=== PATIENT | male | born 1975 | race Caucasian/White ===

== ENCOUNTER 2017-03-16 16:28 | Observation (INO) | payer SELFPAY ==
--- NOTE | 2017-03-16 18:20 | RAD ---
Indication: Post coital bilateral testicular pain radiating into the abdomen. Comparison: None. Technique: Scrotal ultrasound. Report: 5.1 x 1.9 x 3.3 cm RIGHT testicle. 4.9 x 2.2 x 3.0 cm LEFT testicle. Both testicles are normal in echotexture and demonstrate normal range vascularity. Unremarkable 1.0 x 1.4 cm RIGHT epididymis head and 0.8 x 1.3 cm LEFT epididymis head. Negative for hydroceles or varicoceles. IMPRESSION: No evidence for testicular torsion, epididymoorchitis, or focal testicular lesion. Negative exam.
[2017-03-16] MEDS ORDERED: Morphine INJ* 4 MG/ML 1 ML SYRINGE IV ONE (21:22)
[2017-03-16] MEDS ORDERED: Ondansetron INJ* 2 MG/ML VIAL IV ONE (21:22)
[2017-03-16] MEDS ORDERED: NS 0.9% 1000 ML* 1,000 ML IV ONE (21:22)
--- NOTE | 2017-03-16 21:25 | ED ---
Abdominal Pain/Male - HPI Summary HPI Summary: Pt here w/ lower mid pelvic pain x 2 days. Worse today after intercourse. Radiates into testicles - denies deformity of testicles (ie high riding, etc). Worse w/ moving bowels which are normal in regards to form, no blood or mucous, etc. Denies urinary sx, penile d/c, testicular swelling, flank pain, fever, chills, N/V/D. 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 No h/o ab pathology or surgery. No protruding masses or pulsing masses to report. - History of Current Complaint Chief Complaint: EDAbdPain Stated Complaint: ABD/TESTICULAR PAIN Time Seen by Provider: 03/16/17 21:07 Hx Obtained From: Patient Pain Intensity: 8 - Allergies/Home Medications Allergies/Adverse Reactions: Allergies Allergy/AdvReac Type Severity Reaction Status Date / Time No Known Allergies Allergy Verified 03/16/17 21:41 PMH/Surg Hx/FS Hx/Imm Hx Previously Healthy: Yes Endocrine/Hematology History: Denies: Hx Anticoagulant Therapy, Hx Blood Disorders Cardiovascular History: Reports: Hx Hypertension - improved after changing careers Musculoskeletal History: Reports: Hx Back Problems - chronic back pain Infectious Disease History: No Infectious Disease History: Denies: Traveled Outside the [place] in Last 30 Days - Social History Occupation: Employed Full-time Lives: With Family Alcohol Use: Daily Hx Tobacco Use: Yes Smoking Status (MU): Current Every Day Smoker Review of Systems Negative: Fever, Chills Negative: Chest Pain Negative: Shortness Of Breath, Cough Positive: Abdominal Pain - see HPI Positive: see HPI. Negative: flank pain Musculoskeletal: Negative Skin: Negative Neurological: Negative Psychological: Normal - concerned All Other Systems Reviewed And Are Negative: Yes Physical Exam Triage Information Reviewed: Yes Vital Signs On Initial Exam: Initial Vitals Temp Pulse Resp BP Pulse Ox 97.2 F 73 17 140/85 99 03/16/17 16:39 03/16/17 16:39 03/16/17 16:39 03/16/17 16:39 03/16/17 16:39 Vital Signs Reviewed: Yes Appearance: Positive: Well-Appearing, Well-Nourished, Pain Distress - mild to moderate Skin: Positive: Warm, Dry Head/Face: Positive: Normal Head/Face Inspection Eyes: Positive: Normal, EOMI, Conjunctiva Clear - anicteric sclera ENT: Positive: Hearing grossly normal, Pharynx normal - mucosa moist Respiratory/Lung Sounds: Positive: Clear to Auscultation, Breath Sounds Present. Negative: Rales, Rhonchi, Wheezes Cardiovascular: Positive: Normal, RRR, Pulses are Symmetrical in both Upper and Lower Extremities, S1, S2 Abdomen Description: Positive: Distended - pt has pain w/ percussion; generalized TTP, Guarding. Negative: Hernia @ - no hernia palpated nor visualized w/ valsalva Bowel Sounds: Positive: Present Male Genital Exam: Positive: normal genitalia, inguinal tenderness - Lt > Rt Musculoskeletal: Positive: Normal, Strength/ROM Intact Neurological: Positive: Normal, Sensory/Motor Intact, Alert, Oriented to Person Place, Time, CN Intact II-III Psychiatric: Positive: Normal - calm but concerned Diagnostics - Vital Signs Vital Signs Temp Pulse Resp BP Pulse Ox 03/16/17 16:39 97.2 F 73 17 140/85 99 - Laboratory Result Diagrams: 03/16/17 21:50 03/16/17 21:50 Lab Statement: Any lab studies that have been ordered have been reviewed, and results considered in the medical decision making process. Re-Evaluation - Re-Evaluation First Eval Change: Improved - morphine 4mg w/ IVF took the edge off but pain returned after a while Abdominal Pain Fem Course/Dx - Course Course Of Treatment: Pt presents w/ lower pelvic/ab pain over the past 2 days. Worse w/ BM. WBC and CRP elevated - CT reveals mild to moderate diverticulitis. Discussion with pt re: d/c vs. admission. After much deliberation, he prefers admission. Tolerated ice water well although this did cause some mild pain. Morphine 8mg was ordered as 4mg did not help much. He does not have nausea throughout his stay. Admitted to hospital service under Dr. Newton. - Diagnoses Provider Diagnoses: Diverticulitis of sigmoid colon Discharge - Discharge Plan Condition: Stable Disposition: ADMITTED TO [facility] [place] [facility]
[2017-03-16 21:48] LABS: Urine Bilirubin Negative (Negative); Urine Glucose Negative (Negative); Urine Nitrite Negative (Negative)
[2017-03-16 22:08] LABS: Hematocrit 46 % (42-52); Hemoglobin 15.5 g/dl (14.0-18.0); Mean Corpuscular HGB Conc 33 g/dl (31-36); Mean Corpuscular Hemoglobin 31 pg (27-31); Mean Corpuscular Volume 94 fL (80-94); Mean Platelet Volume 11 um3 (7.4-10.4); Red Blood Count 4.92 10^6/ul (4.0-5.4); Red Cell Distribution Width 13 % (10.5-15); White Blood Count 17.1 10^3/ul (3.5-10.8)
[2017-03-16 22:13] LABS: Albumin 4.5 g/dL (3.2-5.2); BUN/Creatinine Ratio 12.7 (8-20); C Reactive Protein 12.78 mg/L (< 5.00); Calcium 9.4 mg/dL (8.6-10.3); EGFR African American 138.3 (>60); EGFR Non-African American 107.6 (>60); Globulin 3.2 g/dL (2-4); Potassium 3.9 mmol/L (3.5-5.0); Total Bilirubin 1.1 mg/dL (0.2-1.0); Total Protein 7.7 g/dL (6.4-8.9)
[2017-03-16] MEDS ORDERED: Iohexol 300* (CONTRAST) 10 ML SDV IV ONE (23:22)
[2017-03-17] MEDS ORDERED: Morphine INJ* 4 MG/ML 1 ML SYRINGE IV ONE (01:01)
[2017-03-17] MEDS ORDERED: Morphine INJ* 4 MG/ML 1 ML SYRINGE IV PRN (02:02)
[2017-03-17] MEDS ORDERED: Acetaminophen TAB* 325 MG PO PRN (02:02)
[2017-03-17] MEDS ORDERED: Ondansetron INJ* 2 MG/ML VIAL IV PRN (02:02)
[2017-03-17] MEDS ORDERED: NS 0.9% 1000 ML* 1,000 ML IV SCH (02:15)
[2017-03-17] MEDS: HYDROmorphone* 1 MG/ML 1 ML SYR IV SLOW PU PRN ×2 (02:43→08:21)
[2017-03-17] MEDS ORDERED: Ciprofloxacin 400MG IVPREMIX(* 400 MG/200 ML BAG IVPB SCH (03:00)
[2017-03-17] MEDS ORDERED: metroNIDAZOLE IV 500 MG/100ML* 500 MG/100 ML BAG IVPB SCH (04:00)
[2017-03-17] MEDS: Ciprofloxacin 400MG IVPREMIX(* 400 MG/200 ML BAG IVPB SCH ×2 (05:34→17:42)
--- NOTE | 2017-03-17 05:34 | HP ---
HISTORY AND PHYSICAL: DATE OF ADMISSION: 03/17/17 CHIEF COMPLAINT: Abdominal pain. HISTORY OF PRESENT ILLNESS: The patient is a 41-year-old gentleman who said he woke up this morning with pain in his lower abdomen radiating to his testicles. At one point, he said he felt like his testicles actually to the floor. He took ibuprofen and Pepto-Bismol without any success. At its worst, it was 9.5/10 in severity with pain. When asked if he does any heavy lifting, he says he does it every day. He denies any nausea or vomiting. He denies any change in his bowel movements. He denies any fevers or chills. He did receive some morphine in the ER, which did seem to help his pain to some degree. He also had a CAT scan, which showed diverticulitis without abscess or free air. PAST MEDICAL HISTORY: He has no significant past medical history. ALLERGIES: He has no known drug allergies. MEDICATIONS: None. FAMILY HISTORY: Mother is alive at 63, alive and well; father is alive at 73, has bladder cancer, coronary artery disease and stents. SOCIAL HISTORY: Smokes 1-1/2 packs a day. Denies need for nicotine replacement. He drinks 6 to 8 beers a day, used to drink a case of beer a day. Occasional marijuana. 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 His mom, Tabitha Raymond, is his healthcare proxy. He is in a monogamous relationship and he has 2 daughters. REVIEW OF SYSTEMS: A 14-point review of systems was completed with the patient. All pertinent positive and negatives are in the history of present illness, otherwise it is negative. PHYSICAL EXAMINATION GENERAL: Pleasant gentleman, lying in bed, in no acute distress. VITAL SIGNS: Temperature is 97.2 degrees, heart rate is 69 beats per minute, respiratory rate is 18 breaths per minute, pulse ox 97%, blood pressure 151/84. HEENT: Normocephalic, atraumatic. Pupils equal, round, reactive to light. Moist mucous membranes. NECK: Supple. No JVD, bruits, palpable thyroid, or lymphadenopathy. LUNGS: Chest is clear to auscultation and percussion bilaterally. CARDIOVASCULAR: S1 and S2 appreciated. Regular rate and rhythm. ABDOMEN: Positive bowel sounds in all 4 quadrants. Soft and tender but no rebound, no rigidity. EXTREMITIES: No cyanosis, clubbing or edema. +2 peripheral pulses bilaterally. NEUROLOGIC: Alert and oriented x3, moves all extremities. SKIN: No rashes or abnormalities. LABORATORY AND IMAGING DATA: White count 17.1, hemoglobin 15.5, hematocrit 46 , platelets 218. Sodium is 137, potassium 3.9, chloride 103, CO2 25, BUN 10, creatinine 0.79, glucose 80, lactic acid 1.6. Urinalysis is unremarkable. Testicular ultrasound showed no evidence of testicular torsion, epididymo- orchitis or focal testicular lesion. Negative exam. Abdominal pelvic CT showed diverticulitis without abscess or free air. ASSESSMENT AND PLAN: 1. Diverticulitis with significant pain. We will place patient on IV Cipro and Flagyl, morphine p.r.n. for pain. May also increase the Dilaudid if it does not work well enough. Normal saline at 100 cc an hour, Zofran p.r.n. for nausea. 2. Tobacco abuse. Discussed at length with patient. He declines need for nicotine replacement. 3. Alcohol abuse. He says he is much better than he used to be and has had withdrawal in the past when he drank much heavier, but has not had one since he has cut down. We will observe, but if it shows any evidence, we will institute [facility] protocol. 4. DVT prophylaxis. Heparin subcutaneously. 5. FEN. Clear liquid diet. Normal saline 100 cc an hour. 6. The patient is a full code. TIME SPENT: Over 75 minutes were spent on this H and P, more than 40 minutes of which was spent in direct [id number] contact with the patient in evaluation, physical exam, counseling, and coordination of care. [id number]/[facility] #: [id number] MTDD
[2017-03-17] MEDS: Heparin VIAL(*) 5000 UNITS/ML VIAL (FIVE THOUSAND) SUBCUT SCH ×3 (05:45→20:37)
--- NOTE | 2017-03-17 07:39 | RAD ---
INDICATION: Mid and lower abdominal pain. COMPARISON: There are no prior studies available for comparison. TECHNIQUE: A CT scan of the abdomen and pelvis was performed with intravenous and oral contrast following intravenous injection of 113 ml of Omnipaque 300 nonionic contrast. Contiguous axial sections were obtained from the lung bases through the symphysis pubis. Images were reconstructed in the coronal and sagittal planes. FINDINGS: There is dependent bilateral lower lobe subsegmental atelectasis. No pleural effusion is present. The very superior aspect of the liver is cut off on the film. The liver and spleen are normal in density without significant focal abnormality. No intra or extrahepatic ductal distention is present. No calcified gallstones are seen. The pancreas appears to be within normal limits. The kidneys and adrenal glands are normal in size. No hydronephrosis is seen. No significant focal renal abnormality is seen. The aorta is normal in caliber and demonstrates homogeneous contrast opacification. No significant enlarged retroperitoneal lymph nodes are seen. The stomach, small and large bowel appear nondistended. The appendix is not visualized. No inflammatory changes are seen in the right lower quadrant. There is mild to moderate descending and sigmoid diverticulosis. There is thickening of the wall of the mid sigmoid colon with interstitial stranding in the surrounding mesenteric fat. These findings are nonspecific although would be most consistent with diverticulitis. There is a trace amount of free intraperitoneal fluid. No free intraperitoneal air or abscess is seen. No significant focal osseous abnormality is seen. IMPRESSION: WALL THICKENING AND STRANDING AROUND THE SIGMOID COLON. THIS IS A NONSPECIFIC FINDING ALTHOUGH MOST CONSISTENT WITH DIVERTICULITIS. THERE IS NO EVIDENCE FOR ABSCESS. RECOMMEND CLINICAL CORRELATION AND CONSIDER FOLLOW-UP COLONOSCOPY.
[2017-03-17] MEDS: metroNIDAZOLE IV 500 MG/100ML* 500 MG/100 ML BAG IVPB SCH ×3 (08:21→19:45)
--- NOTE | 2017-03-17 09:17 | PN ---
Subjective Date of Service: 03/17/17 Interval History: pt's abd pain is better controlled. Overall feels better. No BM since yesterday. tolerating clears Objective Active Medications: Acetaminophen (Tylenol Tab*) 650 mg PO Q6H PRN PRN Reason: pain/fever Heparin Sodium (Porcine) (Heparin Vial(*)) 5,000 units SUBCUT Q8HR [facility] Last Admin: 03/17/17 05:45 Dose: 5,000 units Hydromorphone HCl (Dilaudid Iv*) 1 mg IV SLOW PU Q2H PRN PRN Reason: PAIN Last Admin: 03/17/17 08:21 Dose: 1 mg Sodium Chloride (Ns 0.9% 1000 Ml*) 1,000 mls @ 100 mls/hr IV PER RATE [facility] Last Admin: 03/17/17 05:34 Dose: 100 mls/hr Ciprofloxacin/Dextrose (Cipro 400 Mg Ivpremix(*)) 400 mg in 200 mls @ 200 mls/ hr IVPB 0600,1800 [facility] Last Admin: 03/17/17 05:34 Dose: 200 mls/hr Metronidazole/Sodium Chloride (Flagyl 500 Mg Ivpb*) 500 mg in 100 mls @ 100 mls /hr IVPB Q6H [facility] Last Admin: 03/17/17 08:21 Dose: 100 mls/hr Morphine Sulfate (Morphine Inj (Syringe)*) 4 mg IV Q2H PRN PRN Reason: PAIN Stop: 03/17/17 10:03 Ondansetron HCl (Zofran Inj*) 4 mg IV Q4H PRN PRN Reason: NAUSEA Vital Signs 03/17/17 03/17/17 03/17/17 02:30 02:43 03:00 Temperature Pulse Rate 61 65 Respiratory 18 Rate Blood Pressure 143/86 138/83 (mmHg) O2 Sat by Pulse 94 94 Oximetry 03/17/17 03/17/17 03/17/17 03:30 03:43 04:00 Temperature Pulse Rate 58 61 Respiratory 16 Rate Blood Pressure 138/83 130/75 (mmHg) O2 Sat by Pulse 93 94 Oximetry 03/17/17 03/17/17 03/17/17 04:30 05:00 05:24 Temperature 97.9 F Pulse Rate 58 55 56 Respiratory 16 Rate Blood Pressure 138/71 119/69 146/78 (mmHg) O2 Sat by Pulse 93 95 97 Oximetry 03/17/17 03/17/17 03/17/17 05:30 06:03 08:09 Temperature 97.9 F 98.1 F Pulse Rate 56 57 Respiratory 16 16 20 Rate Blood Pressure 146/78 134/79 (mmHg) O2 Sat by Pulse 97 96 Oximetry 03/17/17 08:21 Temperature Pulse Rate Respiratory 16 Rate Blood Pressure (mmHg) O2 Sat by Pulse Oximetry Oxygen Devices in Use Now: None Appearance: 41 to M in nAD, aAOx3 Eyes: No Scleral Icterus, PERRLA Ears/Nose/Mouth/Throat: NL Teeth, Lips, Gums, Mucous Membranes Moist Neck: NL Appearance and Movements; NL JVP, Trachea Midline Respiratory: Symmetrical Chest Expansion and Respiratory Effort, Clear to Auscultation Cardiovascular: NL Sounds; No Murmurs; No JVD, RRR Abdominal: No Hepatosplenomegaly, - - soft, tender in periubilical area and lower abd, no rebound, voluntary guarding present, BS+ Lymphatic: No Cervical Adenopathy Extremities: No Edema, No Clubbing, Cyanosis Skin: No Rash or Ulcers, No Nodules or Sclerosis Neurological: Alert and Oriented x 3, NL Muscle Strength and Tone Result Diagrams: 03/16/17 21:50 03/16/17 21:50 Assess/Plan/Problems-Billing Assessment: 41 yo M with h/o smoking and daily ETOH use presents with diverticulitis. - Patient Problems (1) Acute diverticulitis Comment: Cont Cipro/Flagyl Abd pain improving Cont IVF and clears PO (2) Smoking Comment: not interested in nicotine replacement (3) DVT prophylaxis Comment: heparin sc Status and Disposition: inpatient
[2017-03-17] MEDS: oxyCODONE TAB* 5 MG TAB PO PRN ×3 (11:49→20:37)
[2017-03-18] MEDS: metroNIDAZOLE IV 500 MG/100ML* 500 MG/100 ML BAG IVPB SCH ×3 (01:57→14:04)
[2017-03-18] MEDS: oxyCODONE TAB* 5 MG TAB PO PRN ×2 (02:06→06:22)
[2017-03-18 05:21] LABS: Hematocrit 39 % (42-52); Hemoglobin 13.1 g/dl (14.0-18.0); Mean Corpuscular HGB Conc 33 g/dl (31-36); Mean Corpuscular Hemoglobin 31 pg (27-31); Mean Corpuscular Volume 94 fL (80-94); Mean Platelet Volume 11 um3 (7.4-10.4); Red Blood Count 4.18 10^6/ul (4.0-5.4); Red Cell Distribution Width 13 % (10.5-15)
[2017-03-18 05:36] LABS: BUN/Creatinine Ratio 8.4 (8-20); Calcium 8.6 mg/dL (8.6-10.3); EGFR African American 130.7 (>60); EGFR Non-African American 101.6 (>60); Potassium 4.1 mmol/L (3.5-5.0)
[2017-03-18] MEDS: Ciprofloxacin 400MG IVPREMIX(* 400 MG/200 ML BAG IVPB SCH ×2 (05:47→17:03)
[2017-03-18] MEDS: Heparin VIAL(*) 5000 UNITS/ML VIAL (FIVE THOUSAND) SUBCUT SCH ×2 (05:49→14:02)
[2017-03-18 15:35] VITALS: BP 134/73
--- NOTE | 2017-03-19 02:31 | DS ---
DISCHARGE SUMMARY: DATE OF ADMISSION: 03/17/17 DATE OF DISCHARGE: 03/18/17 DISCHARGE DIAGNOSIS: Acute diverticulitis. SECONDARY DIAGNOSES: 1. Tobacco abuse. 2. Alcohol abuse. MEDICATIONS AT DISCHARGE: 1. Ciprofloxacin 500 mg p.o. b.i.d. for a total of 8 days. 2. Flagyl 500 mg 2 times a day for a total of 8 days. 3. Oxycodone 5 mg every 4 hours p.r.n. pain. The patient was dispensed prescription for a total of 30 tablets. I-STOP was checked. No recent prescription for controlled substances were prescribed for this patient. LABORATORY DATA PERFORMED DURING THE HOSPITAL STAY: Include: On 03/18/17: White blood cell count of 11.3, hemoglobin of 13.1, hematocrit 39, and platelets of 174. Sodium 137, potassium 4.1, chloride 105, carbon dioxide 28, BUN 7, and creatinine 0.83. CT of the abdomen and pelvis obtained at admission, impression: "Wall thickening surrounding around the sigmoid colon. This is a nonspecific finding , although most consistent with diverticulitis. There was no evidence for abscess. Recommended clinical correlation and consider followup colonoscopy." HOSPITALIZATION COURSE: Mr. Raymond is a 41-year-old male with history of smoking and drinking several beers a day who presented to the hospital complaining of abdominal pain. For further details of the patient's presentation, please see history and physical dictated on admission by Dr. Newton. Shortly, the patient was placed on observation and on clear liquid diet as well as intravenous fluids and parenteral antibiotics. He did very well for over the period of a little bit over 24 hours. His pain improved to the point that he was tolerating soft diet and pain was controlled with oxycodone. At discharge, the patient is going to be placed on Flagyl and ciprofloxacin to finish a total of 10-day course of antibiotics. He was also prescribed oxycodone for pain. PHYSICAL EXAMINATION AT THE TIME OF DISCHARGE: Vital signs: Blood pressure of 134/73, heart rate of 51 and regular, respiratory rate 16, oxygen saturation 98% on room air, and temperature 98.4. General: The patient is a pleasant 41-year-old male, who is in no acute distress. Alert, awake, and oriented x3. HEENT: Head atraumatic, normocephalic. Eyes: Pupils equal, round, reactive to light and accommodation. Oropharynx clear. Mucosa moist. Neck: Supple. No JVD. No bruits bilaterally. Cardiovascular: Regular rate and rhythm. No murmur. Respiratory: Clear to auscultation bilaterally. Abdomen: Soft, mildly tender in the periumbilical and suprapubic area with no rebound and no guarding. Bowel sounds present in all 4 quadrants. Extremities: There is no edema. Pulses present 2+ bilaterally. No clubbing or cyanosis. Neuro Evaluation: Speech is clear. Cranial nerves II through XII are grossly intact. Motor strength is 5/5 bilaterally. FOLLOWUP: At discharge, the patient is recommended to follow up at the primary care physician of his choice in approximately 4 to 7 days. Please note that this is a short summary of the patient's hospitalization. Please refer to further medical records for details. [id number]/[facility] #: [id number] MTDD
== END 2017-03-18 18:10 | disposition home or self-care (01) ==
LOC: ED 16:28 → INTOOBSV 03-17 02:02 → MED 03-17 02:02
PROVIDERS: ADMIT Internal Medicine; ATTEND Internal Medicine
DX: K57.32 Diverticulitis of large intestine without perforation or abscess without bleeding (principal); J98.11 Atelectasis; N50.812 Left testicular pain; N50.811 Right testicular pain; F17.210 Nicotine dependence, cigarettes, uncomplicated; F10.10 Alcohol abuse, uncomplicated
CPT/HCPCS: 36415; 74177; 76870; 80048; 80053; 81003; 83605; 83690; 85025; 86140; 96372; 96374; 96375; 96376; 99283; 99406; A9270-GY; G0378; J0744; J1170; J1644; J2270; J2405; Q9967